=== PATIENT | female | born 1960 | race Caucasian/White ===

== ENCOUNTER 2016-09-24 13:13 | Emergency (ER) | payer OTHER ==
[~2016-09-24] VITALS: Ht 157.5 cm; Wt 91.0 kg
[2016-09-24 13:15] VITALS: BP 150/106; PULSE 100; RESP 20; TEMP 98; O2SAT 98
[2016-09-24] MEDS ORDERED: TETANUS/DIPHTHERIA TOXOID ADULT 0.5 ML VIAL IM ONE (13:30)
[2016-09-24] MEDS ORDERED: LIDOCAINE 1%/EPINEPHrine 1:100,000 SOLN 20 ML VIAL INFIL ONE (13:30)
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
[2016-09-24 15:21] VITALS: BP 156/85; PULSE 91; RESP 18; O2SAT 98
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
[2016-09-24] MEDS ORDERED: SODIUM CHLOR 0.9% 1000 ML INJ 1,000 ML IV ONE (16:00)
[2016-09-24] MEDS ORDERED: ONDANSETRON ODT 4 MG TAB PO ONE (16:00)
[2016-09-24] MEDS ORDERED: HYDR-3533 PO (16:28)
[2016-09-24] MEDS ORDERED: ZOFR4TAB3 SL (16:28)
[2016-09-24] MEDS ORDERED: ACETAMINOPHEN/HYDROcodone 325 MG/5 MG TAB PO ONE (16:30)
== END 2016-09-24 17:39 | disposition home or self-care (01) ==
LOC: NEPA 13:13
DX: S01.01XA Laceration without foreign body of scalp, initial encounter (principal); M54.2 Cervicalgia; V48.5XXA Car driver injured in noncollision transport accident in traffic accident, initial encounter; Y92.411 Interstate highway as the place of occurrence of the external cause; Z23 Encounter for immunization
CPT/HCPCS: 12011; 70450; 90471; 90714